=== PATIENT | male | born 1955 | race Caucasian/White ===

== ENCOUNTER 2018-09-01 09:44 | Emergency (ER) | payer OTHER ==
--- NOTE | 2018-09-01 09:51 | EDPHY ---
H & P Stated Complaint: dizzy, chest heaviness Time Seen by Provider: 09/01/18 09:51 HPI/ROS: CHIEF COMPLAINT: Vague dizziness, chest pressure HISTORY OF PRESENT ILLNESS: The patient presents to the ED after he developed some vague symptoms of dizziness which are not classically described as vertigo at work today. The patient had some slight pressure in his chest. The patient reports that he feels "tremulous." The patient was experiencing some bilateral facial paresthesias. The patient denies any unilateral numbness or weakness. The patient denies any complaints of acute headache. The patient denies history of coronary artery disease. REVIEW OF SYSTEMS: A comprehensive 10 point review of systems is otherwise negative aside from elements mentioned in the history of present illness. Source: Patient Exam Limitations: No limitations - Personal History Current Tetanus/Diphtheria Vaccine: Yes Current Tetanus Diphtheria and Acellular Pertussis (TDAP): Yes - Medical/Surgical History Hx Asthma: No Hx Chronic Respiratory Disease: No Hx Diabetes: No Hx Cardiac Disease: No Hx Renal Disease: No Hx Cirrhosis: No Hx Alcoholism: No Hx HIV/AIDS: No Hx Splenectomy or Spleen Trauma: No Other PMH: hyperlipidemia, - Social History Smoking Status: Current every day smoker - Physical Exam Exam: General Appearance: Alert, no distress Eyes: Pupils equal and round no pallor or injection ENT, Mouth: Mucous membranes moist Respiratory: There are no retractions, lungs are clear to auscultation Cardiovascular: Regular rate and rhythm Gastrointestinal: Abdomen is soft and nontender, no masses, bowel sounds normal Neurological: A&O, normal motor function, normal sensory exam, normal cranial nerves Skin: Warm and dry, no rashes Musculoskeletal: Neck is supple nontender Extremities: symmetrical, full range of motion Constitutional: Initial Vital Signs Temperature (C) 36.8 C 09/01/18 09:48 Heart Rate 85 09/01/18 09:48 Respiratory Rate 16 09/01/18 09:48 Blood Pressure 177/95 H 09/01/18 09:48 O2 Sat (%) 96 09/01/18 09:48 O2 Delivery Mode Room Air Allergies/Adverse Reactions: No Known Allergies Allergy (Unverified 09/01/18 09:48) Home Medications: Medication Instructions Recorded Crestor 09/01/18 Testosterone 09/01/18 Medical Decision Making - Diagnostics EKG Interpretation: EKG: Complete interpretation has been separately recorded in the [facility] archive. Summary impression: Sinus rhythm, rate 76 ED Course/Re-evaluation: Patient presents to the ED after an episode of vague dizziness, shakiness and fatigue. The patient arrived and was noted to be hemodynamically stable. He is neurologically intact. The patient's initial EKG demonstrates a sinus rhythm without ischemic changes. The patient had troponin studies x2 in the emergency department which are normal. The remainder of the patient's workup including CBC and serum chemistries are normal. The patient had multiple examinations in the ED by myself. I re-evaluated the patient at 1:00 p.m.. Differential Diagnosis: Differential diagnosis considered includes arrhythmia, dehydration, vasovagal episode, vertigo, stroke, TIA - Data Points Laboratory Results: Laboratory Results 09/01/18 09:50 09/01/18 09:50 09/01/18 09/01/18 09/01/18 12:34 09:56 09:50 WBC RBC Hgb Hct MCV MCH MCHC RDW Plt Count MPV Neut % (Auto) Lymph % (Auto) Moca % (Auto) Eos % (Auto) Baso % (Auto) Nucleat RBC Rel Count Absolute Neuts (auto) Absolute Lymphs (auto) Absolute Monos (auto) Absolute Eos (auto) Absolute Basos (auto) Absolute Nucleated RBC Immature Gran % Immature Gran # Sodium 142 mEq/L mEq/L (135-145) Potassium 4.3 mEq/L mEq/L (3.5-5.2) Chloride 104 mEq/L mEq/L (97-110) Carbon Dioxide 25 mEq/l mEq/l (22-31) Anion Gap 13 mEq/L mEq/L (6-14) BUN 14 mg/dL mg/dL (7-23) Creatinine 0.9 mg/dL mg/dL (0.7-1.3) Estimated GFR > 60 Glucose 113 mg/dL H mg/dL (70-100) Calcium 10.0 mg/dL mg/dL (8.5-10.4) POC Troponin I 0.01 ng/mL ng/mL 0.00 ng/mL ng/mL (0.00-0.08) (0.00-0.08) 09/01/18 09:50 WBC 5.19 10^3/uL 10^3/uL (3.80-9.50) RBC 5.37 10^6/uL 10^6/uL (4.40-6.38) Hgb 17.3 g/dL g/dL (13.7-17.5) Hct 49.7 % % (40.0-51.0) MCV 92.6 fL fL (81.5-99.8) MCH 32.2 pg pg (27.9-34.1) MCHC 34.8 g/dL g/dL (32.4-36.7) RDW 13.1 % % (11.5-15.2) Plt Count 163 10^3/uL 10^3/uL (150-400) MPV 9.9 fL fL (8.7-11.7) Neut % (Auto) 57.3 % % (39.3-74.2) Lymph % (Auto) 29.7 % % (15.0-45.0) Moca % (Auto) 8.7 % % (4.5-13.0) Eos % (Auto) 2.9 % % (0.6-7.6) Baso % (Auto) 1.2 % % (0.3-1.7) Nucleat RBC Rel Count 0.0 % % (0.0-0.2) Absolute Neuts (auto) 2.98 10^3/uL 10^3/uL (1.70-6.50) Absolute Lymphs (auto) 1.54 10^3/uL 10^3/uL (1.00-3.00) Absolute Monos (auto) 0.45 10^3/uL 10^3/uL (0.30-0.80) Absolute Eos (auto) 0.15 10^3/uL 10^3/uL (0.03-0.40) Absolute Basos (auto) 0.06 10^3/uL 10^3/uL (0.02-0.10) Absolute Nucleated RBC 0.00 10^3/uL 10^3/uL (0-0.01) Immature Gran % 0.2 % % (0.0-1.1) Immature Gran # 0.01 10^3/uL 10^3/uL (0.00-0.10) Sodium Potassium Chloride Carbon Dioxide Anion Gap BUN Creatinine Estimated GFR Glucose Calcium POC Troponin I Medications Given: Discontinued Medications Sodium Chloride (Ns) 1,000 mls @ 0 mls/hr IV EDNOW ONE; Wide Open PRN Reason: Protocol Stop: 09/01/18 10:14 Last Admin: 09/01/18 10:52 Dose: 1,000 mls Point of Care Test Results: Chemistry 09/01/18 09/01/18 12:34 09:56 POC Troponin I 0.01 ng/mL ng/mL 0.00 ng/mL ng/mL (0.00-0.08) (0.00-0.08) Departure - Departure Disposition: Home, Routine, Self-Care Clinical Impression: Dizziness Condition: Good Instructions: Lightheadedness (ED) Additional Instructions: 1. The testing in the emergency department today demonstrates no obvious abnormality. 2. Please try and increase your fluid intake as mild dehydration may have contributed to your symptoms today. 3. Please return to the ED for any chest pain, shortness of breath, markedly worsening symptoms or other concerns. 4. I do recommend that you follow up with Cardiology for consideration of a treadmill stress test given your brief episode of chest pressure. I have provided you with a contact number of our on-call shuttle driver and have requested they contact you to schedule a follow-up visit.
[2018-09-01] MEDS ORDERED: NS 1,000 ML IV ONE (10:13)
[2018-09-01 10:28] LABS: PLATELET COUNT 163 10^3/uL (150-400)
--- NOTE | 2018-09-01 13:01 | CPEKG ---
Test Reason : OPEN Blood Pressure : / mmHG Vent. Rate : 076 BPM Atrial Rate : 073 BPM P-R Int : 063 ms QRS Dur : 088 ms QT Int : 375 ms P-R-T Axes : 050 038 067 degrees QTc Int : 422 ms Sinus rhythm Short [place] interval Confirmed by Musa Billings ([id number]) on 09/01/2018 1:00:24 PM Referred By: Confirmed By:Musa Billings
[2018-09-01 13:14] VITALS: BP 138/79
== END 2018-09-01 13:14 | disposition home or self-care (01) ==
DX: R07.9 Chest pain, unspecified (principal); R42 Dizziness and giddiness; E86.9 Volume depletion, unspecified; E78.5 Hyperlipidemia, unspecified; F17.200 Nicotine dependence, unspecified, uncomplicated
CPT/HCPCS: 84484-ER